=== PATIENT | male | born 1970 | race Hispanic/Latino ===

== ENCOUNTER 2020-01-21 20:07 | Emergency (ER) | payer BC, OTHER ==
[~2020-01-21] VITALS: Ht 185.4 cm; Wt 74.8 kg
[~2020-01-21 20:07] MED LIST: CIALIS5 MG PO; LOSARTAN POTAS100 MG PO; PRADAXA150 MG PO
--- NOTE | 2020-01-21 21:11 | Emergency Department Note ---
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 Any updates have been documented here. Past Medical History Recent Fever: No Clinical Suspicion of Infectio: No New/Unexplained Change in Ment: No Past Medical History: CVA, A-Fib, Kidney Stones Other Medical History: COVID-19 - 01/11/20 Other Surgery: VASECTOMY LT FOOT SX Social History Smoking Cessation: Never Smoker Alcohol Use: None Any Illegal Drug Use: No Physically hurt or threatened: No Family History Family history of heart diseas: No Other Last Tetanus: UNKNOWN Review of Systems Review of Systems Constitutional: Reports no symptoms EENTM: Reports no symptoms Cardiovascular: Reports no symptoms Respiratory: Reports as per HPI Gastrointestinal: Reports no symptoms Genitourinary: Reports no symptoms Musculoskeletal: Reports no symptoms Integumentary: Reports no symptoms Neurological: Reports no symptoms Psychological: Reports no symptoms Endocrine: Reports no symptoms Hematological/Lymphatic: Reports no symptoms Physical Exam Related Data Allergies: Coded Allergies: amiodarone (Verified Allergy, Unknown, 01/21/20) Triage Vital Signs Vital Signs Date Time Temp Pulse Resp B/P (MAP) Pulse Ox O2 Delivery O2 Flow Rate FiO2 01/21/20 20:54 99.1 70 20 155/82 98 Room Air Vital signs reviewed: Yes Physical Exam CONSTITUTIONAL Constitutional: Present well-developed, Present well-nourished HENT HENT: Present normocephalic, Present atraumatic, Present oropharynx clear/moist, Present nose normal HENT L/R: Present left ext ear normal, Present right ext ear normal EYES Eyes: Reports PERRL, Reports conjunctivae normal NECK Neck: Present ROM normal PULMONARY Pulmonary: Present effort normal, Present breath sounds normal CARDIOVASCULAR Cardiovascular: Present regular rhythm, Present heart sounds normal, Present capillary refill normal, Present normal rate GASTROINTESTINAL Abdominal: Present soft, Present nontender, Present bowel sounds normal GENITOURINARY Genitourinary: Present exam deferred SKIN Skin: Present warm, Present dry MUSCULOSKELETAL Musculoskeletal: Present ROM normal NEUROLOGICAL Neurological: Present alert, Present oriented x 3, Present no gross motor or sensory deficits PSYCHOLOGICAL Psychological: Present mood/affect normal, Present judgement normal Results Imaging Imaging results reviewed: Yes Impressions Procedure: [id number] DX/CHEST SINGLE (PORTABLE) Exam Date: 01/21/20 Exam Time: 2224 REPORT STATUS: Signed EXAMINATION: CHEST SINGLE (PORTABLE) INDICATION: ^Y ^COVID POSITIVE, COUGH, SOB ^[id number] ^2224 ^Y COMPARISON: None FINDINGS: Enlarged heart. Pulmonary vessels are within normal limits. Patchy opacity in the mid right lung. Costophrenic angles are not included in the [id number]. No sizable pleural effusion. No pneumothorax. IMPRESSION: 1. Patchy opacity in the mid right lung concerning for pneumonia. Distribution is atypical for Covid 19. Radiographic follow-up in 6-8 weeks is recommended to document resolution. 2. Cardiomegaly. No edema. Signed by: Sebastian Ponce MD on 01/21/2020 10:46 PM Dictated By: SEBASTIAN PONCE MD 45 Transcribed By: BRADEN on 01/21/202245 COPY TO: VIRGINIA HEAD MD~ Assessment & Plan Medical Decision Making MDM PT WITH COVID WANTING TO MAKE SURE HIS CXR IS NOT GETTING WORSE CXR ORDERED TO EVAL FOR PNEUMONIA Assessment & Plan Final Impression: (1) COVID-19 (2) Pneumonia Depart Disposition: HOME, SELF-CARE Last Vital Signs Date Time Temp Pulse Resp B/P (MAP) Pulse Ox O2 Delivery O2 Flow Rate FiO2 01/21/20 20:54 99.1 70 20 155/82 98 Room Air Home Meds Reported Medications Losartan Potassium (LOSARTAN POTASSIUM) 100 Mg Tablet, 150 MG PO DAILY, TAB 05/30/15 Dabigatran Etexilate Mesylate (PRADAXA) 150 Mg Capsule, 150 MG PO BID 05/30/15 VIRGINIA HEAD MD Jan 21, 2020 21:11
--- OUTSIDE RECORDS SUMMARY | 2020-01-21 21:36 | XMS REPORT | Clinical Summary ---
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 Active CIALIS 5 mg tablet 0 6 Active Problems Not on file Encounters Care Team Description Date Type Specialty 11/04/2019 Travel after 01/20/2019 Social History Date Tobacco Use Types Packs/Day Years Used Never Smoker Drinks/Week oz/Week Comments Alcohol Use Yes Sex Assigned at Date Recorded Not on file Industry Job Start Date Occupation Not on file Not on file Not on file Travel End Travel History Travel Start No recent travel history available. Last Filed Vital Signs Not on file Plan of Treatment Health Maintenance Due Date Last Done Comments INFLUENZA VACCINE 01/06/2020 Results Not on fileafter 01/20/2019 Insurance Type Payer Benefit Subscriber ID Effective Phone Address Plan / Dates Group PPO BCBS BCBS xxxxxxxxxxxxxx [id number] CHOICE resent PPO/KATHY L EMPL PPO Advance Directives For more information, please contact: [phone] Patient Junior Systems Analyst Explanation Type Date Recorded Advance Directives, Living Will and Medical Power of Analog Ic Design Engineer
--- OUTSIDE RECORDS SUMMARY | 2020-01-21 21:36 | XMS REPORT | Continuity of Care Document ---
Author Author [facility] t Organization [facility] Address [address] [place] [id number] Phone Unavailable Care Team Providers Care Marble Cutter Operator Name Role Phone Asked, Pcp No PCP Unavailable Alessandro BENTON, Carline Attphys Diana AVALOS, Payal Panda Attphys Unavailable Ryder AVALOS, Hannah Babcock Attphys Unavailable Human PERSONNEL REPRESENTATIVE, F Judie Attphys BRENDAN SULLIVAN Attphys Unavailable Payers Payer Name Policy Type Policy Number Effective Date Expiration Date Mazin anglin BCBSBCBS CHOICE PPO/FEDERAL EMPL [id number] resentPPO xxxxxxxxxxxxxx 2015 00:00:00 Yousuf Castaneda Problems This patient has no known problems. Allergies, Adverse Reactions, Alerts Allergy Name Allergy Type Status Severity Reaction(s) Onset Date Inacti ve Date Treating Clinician Comments Source Amiodarone Analogues Propensity to adverse reactions to drug Active Swelling 2013-03-24 00:00:00 Yousuf Meth odist Social History Social Habit Start Date Stop Date Quantity Comments Source Sex Assigned At Braden carrasco [employer] Alcohol intake 2016-07-19 00:00:00 2016-07-19 00:00:00 Current drinker of alcohol (finding) Yousuf Castaneda Smoking Status Start Date Stop Date Source Never smoker Yousuf batista Medications Ordered Medication Name Filled Medication Name Start Date Stop Da te Current Medication? Ordering Clinician Indication Dosage Frequency Signature (SIG) Comments Components Source dabigatran etexilate (PRADAXA) 150 mg capsu 2016-07-19 01:06:49 Yes 150mg Q.5D Take 150 mg by mouth 2 (two) times a day. Yousuf Moyaist amLODIPine (NORVASC) 5 mg tablet 2016-06-15 00:00:00 Yes TK 1 T PO QD Yousuf Moyaist CIALIS 5 mg tablet 2016-04-22 00:00:00 Yes Yousuf Castaneda Procedures This patient has no known procedures. Plan of Care Planned Activity Planned Date Details Comments Source Future Scheduled Test 2020-01-06 00:00:00 INFLUENZA VACCINE [code = INFLUENZA VACCINE] Yousuf Castaneda Encounters Start Date/Time End Date/Time Encounter Type Admission Type Attendi [facility] Care Department Encounter ID Source 2020-01-12 00:00:00 2020-01-12 00:00[id number] 2020-01-09 00:00:00 2020-01-09 00:00:00 Telephone Amarilys García [facility] [id number] 2020-01-06 00:00:00 2020-01-06 00:00:00 Letter (Out) Yoko Collier [facility] [id number] 2020-01-06 00:00:00 2020-01-06 00:00:00 Telephone Judie Dotson [facility] [id number] 2019-11-04 00:00:00 2019-11-04 00:00:00 Outpatient AWILDA SULLIVAN [facility] [id number] Yousuf Castaneda 2018-12-06 16:49:14 2018-12-06 23:59:00 Hospital Encounter Carline Francois [facility] [id number] 2018-12-06 16:49:03 2018-12-06 23:59:00 [facility] [id number] 2018-12-06 15:23:14 2018-12-06 15:53:14 [facility] [id number] Results This patient has no known results.
--- NOTE | 2020-01-21 22:50 | Diagnostic Imaging Report ---
EXAMINATION: CHEST SINGLE (PORTABLE) INDICATION: ^Y ^COVID POSITIVE, COUGH, SOB ^[id number] ^2225 ^Y COMPARISON: None FINDINGS: Enlarged heart. Pulmonary vessels are within normal limits. Patchy opacity in the mid right lung. Costophrenic angles are not included in the [id number]-[id number]. No sizable pleural effusion. No pneumothorax. IMPRESSION: 1. Patchy opacity in the mid right lung concerning for pneumonia. Distribution is atypical for Covid 19. Radiographic follow-up in 6-8 weeks is recommended to document resolution. 2. Cardiomegaly. No edema. Signed by: Marco A Savage MD on 01/21/2020 10:46 PM
== END 2020-01-21 23:30 | disposition home or self-care (01) ==
LOC: ER 21:05
DX: U07.1 COVID-19 (principal); J18.9 Pneumonia, unspecified organism; R05 Cough; I48.91 Unspecified atrial fibrillation; Z86.73 Personal history of transient ischemic attack (TIA), and cerebral infarction without residual deficits; Z87.442 Personal history of urinary calculi
CPT/HCPCS: 71045; 99283